=== PATIENT | male | born 1950 | race Caucasian/White ===

== ENCOUNTER 2019-02-17 11:41 | Day surgery (SDC) | payer OTHER ==
[~2019-02-17] VITALS: Ht 182.9 cm; Wt 96.0 kg
[~2019-02-17 11:41] MED LIST: CORGARD40 MG PO; FLOMAX0.4 MG PO; PAIN RELIEF EX500 MG PO; SIMVASTATIN40 MG PO; SPIRONOLACTONE25 MG PO; ZESTRIL30 MG PO
[2019-02-17 12:28] LABS: CALCIUM 9.4 mg/dL (8.5-10.1); POTASSIUM 3.7 mmol/L (3.5-5.1)
[2019-02-17] MEDS ORDERED: NORCO 5-325 TA1 EAC1 PO (13:49)
--- NOTE | 2019-02-17 16:25 | O ---
[facility] [place] [address] OPERATIVE REPORT Name: MIRTHA SOLIS Room #: 150-8 [facility]..#: [id number] Admission: 02/17/19 Attend Phys: Freddie Manzo MD Discharge: Date of : 48 Report #: [id number] THIS REPORT FOR: //name// CC: Miriam Manzo DATE OF SERVICE: 02/17/[address] Freddie Manzo and Dr. Miriam Umanzor at [facility]. PREOPERATIVE DIAGNOSIS: Bilateral inguinal hernias. POSTOPERATIVE DIAGNOSIS: Bilateral inguinal hernias with bilateral cord lipomas. PROCEDURE: Bilateral inguinal hernia repair with Prolene hernia system mesh and excision of bilateral cord lipomas. SURGEON: Freddie Manzo MD ANESTHESIA: General. DESCRIPTION OF PROCEDURE: The patient was brought to the operating room and placed on operative table in the supine position. Sequential compression devices were in place for DVT prophylaxis. There was no indication for preoperative antibiotics. The bilateral inguinal areas were prepped and draped in a sterile fashion. Skin and subcutaneous tissue overlying the right inguinal area was infiltrated with 0.5% Marcaine. Right inguinal skin incision was then performed using #10 scalpel blade. Hemostasis obtained using electrocautery as well as clamps and 2-0 chromic ties. Dissection was carried down through subcutaneous tissue to the external oblique fascia, which was then incised with a knife and opened with the Metzenbaum scissors. The ilioinguinal nerve was identified, dissected free, injected with the 0.5% Marcaine and preserved. Cord was then elevated and held into place with Saul drain. Cremasteric muscle fibers were then split in the direction of their fibers using a clamp and electrocautery. A cord lipoma was identified, dissected free, clamped, excised and tied with 2-0 chromic ties. The floor was inspected and found to be intact, but fairly weak. An extended Prolene hernia system mesh was then inserted through the floor and the underlay patch was then deployed in the preperitoneal space. The connector was left in the floor and the overlay patch was then deployed into the inguinal canal. The overlay patch was secured to the pubic tubercle superiorly and at the connector using simple interrupted 2-0 Vicryl sutures. The mesh was split and wrapped around the cord, secured to the inguinal ligament with simple interrupted 2-0 Vicryl suture. The braddock and [address] [address] OPERATIVE REPORT Name: MIRTHA SOLIS Room #: 150-8 [facility]#: [id number] Admission: 02/17/19 Attend Phys: Freddie Manzo MD Discharge: Date of : 48 Report #: [id number] ilioinguinal nerve were then returned to the canal intact. The external oblique fascia was then closed using running 2-0 Vicryl sutures. Christopher's fascia was then reapproximated using 3 simple interrupted 2-0 chromic sutures and the skin then closed with a running 4-0 subcuticular Vicryl stitch. The attention was then turned to the left side. Once again, the area was infiltrated with 0.5% Marcaine. Left inguinal skin incision was then performed using #10 scalpel blade. Hemostasis obtained using electrocautery as well as clamps and 2-0 chromic ties. Dissection was carried down through subcutaneous tissue, the external oblique fascia, which was then incised with a knife, opened the Metzenbaum scissors. The ilioinguinal nerve was once again identified, dissected free and injected with the 0.5% Marcaine and preserved. Cord was then elevated and held in place with a Saul drain. Cremasteric muscle fibers were then split in the direction of their fibers using a clamp and electrocautery. Large cord lipoma was identified, dissected free, clamped, excised and tied with a 2-0 chromic tie. An indirect inguinal hernia sac was then identified and dissected free from the cord and reduced back through the internal ring. The extended Prolene hernia system mesh was then inserted through the internal ring and the underlay patch was then deployed in the preperitoneal space. Connector was left in the internal ring and the overlay patch was then deployed into the inguinal canal. The overlay patch was secured at the pubic tubercle superiorly and at the connector using simple interrupted 2-0 Vicryl sutures. The mesh was split and wrapped around the cord and secured to the inguinal ligament with simple interrupted 2-0 Vicryl suture. The cord and ilioinguinal nerve were then returned to the canal intact. The external oblique fascia was then closed using running 2-0 Vicryl suture. Christopher's fascia was then reapproximated using 3 simple interrupted 2-0 chromic sutures and the skin then closed with a running 4-0 subcuticular Vicryl stitch. Both wounds were then dressed with Mastisol, 1/2-inch Steri-Strips cut in half, Telfa, 4 x 4 gauze, sponge and tape. The patient was then awakened from the general anesthesia and taken to the recovery room in good condition. Estimated blood loss was approximately 10 mL total for both procedures and the patient tolerated procedure well. All sponge, lap and instrument counts correct x 2. <ELECTRONICALLY SIGNED> By: Freddie Manzo MD 02/17/19 1625 1608 1622 Freddie Manzo MD /zoran
--- NOTE | 2019-02-17 17:22 | EKG ---
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: [place] : 1950 Requested By: Freddie Manzo Order Number: [id number] MD: Mark Harris Measurements Intervals [place] Rate: 68 P: 64 NE: 168 QRS: -29 QRSD: 122 T: -20 QT: 384 QTc: 409 Interpretive Statements Sinus rhythm Nonspecific intraventricular conduction delay Nonspecific repol abnormality, diffuse leads Baseline wander in lead(s) II,III,aVF No previous ECG available for comparison Electronically Signed On 02-17-2019 17:21:53 [employer] by Mark Harris [email or web address] <ELECTRONICALLY SIGNED> By: Mark Harris MD, [facility] 02/17/19 172 1241 124 Mark Harris MD, FAC /EPI
--- NOTE | 2019-02-21 17:06 | PATH ---
[facility] [place] [address] PATHOLOGY RPT PROCEDURE Name: MIRTHA SOLIS Room #: DEP [facility] M.R.#: [id number] Admission: 02/17/19 Date of : 48 Discharge: 02/17/19 Report #: [id number] Path Case #: [id number] [facility] Accession Number: [id number] . 01 Material submitted: . PART A: inguinal area - RIGHT CORD LIPOMA. Modifiers: right PART B: inguinal area - LEFT CORD LIPOMA. Modifiers: left . 01 Clinical history: . Unilateral inguinal hernia with obstruction, without gangrene, not specified is recurrent . 02 Diagnosis: A. Mature adipose tissue, right cord lipoma, excision: - Compatible with a lipoma. . B. Mature adipose tissue, left cord lipoma, excision: - Compatible with a lipoma. (IUV:gustavo; 02/21/2019) QMS 02/21/2019 1253 Local . 02 Electronically signed: . Chelle Torres MD, Pathologist NPI- [id number] . 01 Gross description: . A. The specimen is received in formalin, labeled "Mirtha Solis, right cord lipoma". Received is a partially capsulated segment of bright yellow lobulated tissue measuring 5.8 x 2.8 x 2.0 cm in greatest dimensions. Sectioning reveals bright yellow, lobulated cut surfaces with no grossly distinct nodules or lesions. The specimen is submitted representatively in cassette A1. . B. The specimen is received in formalin, labeled "Mirtha Solis, left cord lipoma". Received are two segments of partially encapsulated bright yellow lobulated tissue measuring 5.1 x 4.9 x 2.7 cm in aggregate dimensions. Sectioning reveals bright yellow, lobulated cut surfaces with no grossly distinct nodules or lesions. The specimen is submitted representatively in cassette B1. (CAA; 02/18/2019) QA/[facility] 02/18/2019 1040 Local . 02 Pathologist provided ICD-10: D17.6 . 02 CPT . 847291, [id number] [address] [address] PATHOLOGY RPT PROCEDURE Name: MIRTHA SOLIS Room #: DEP [facility] Rebecca#: [id number] Admission: 02/17/19 Date of : 48 Discharge: 02/17/19 Report #: [id number] Path Case #: [id number] Specimen Comment: A courtesy copy of this report has been sent to [phone], [phone] Specimen Comment: [phone] Specimen Comment: Report sent to / DR CHAO Performed at: [address], [place], [place] [id number] MD Max Ricardo MD Phone: [phone] Performed at: [address] [id number] MD Chelle Torres MD Phone: [phone]
== END 2019-02-17 16:50 | disposition home or self-care (01) ==
LOC: OR 11:41 → TBA 11:42 → OR 12:12
PROVIDERS: Surgery
DX: K40.20 Bilateral inguinal hernia, without obstruction or gangrene, not specified as recurrent (principal); D17.6 Benign lipomatous neoplasm of spermatic cord; I10 Essential (primary) hypertension; Z98.890 Other specified postprocedural states; Z79.899 Other long term (current) drug therapy
CPT/HCPCS: 50010; 50101; 50386; 50417; 54111; 56524; 56526; 56528; 62110; 62900; 70005